=== PATIENT | male | born 1945 | race Caucasian/White ===

== ENCOUNTER 2023-03-16 09:44 | Observation (INO) | payer MEDICARE ==
[2023-03-16] VITALS (19 sets, daily range): BP systolic 95–117; BP diastolic 52–77; PULSE 55–82; RESP 13–20
[~2023-03-16] VITALS: Ht 180.3 cm; Wt 102.1 kg
[~2023-03-16 09:44] MED LIST: LEVO-70 PO
[2023-03-16] MEDS ORDERED: NACL 0.9% IV SCH (10:30)
[2023-03-16] MEDS ORDERED: VANCOMYCIN IV SCH (10:30)
[2023-03-16] MEDS ORDERED: VANCOMYCIN KIT 1 GM/250 ML IV.KIT IV ONE (10:30)
[2023-03-16] MEDS ORDERED: PHARMACY COMMUNICATION MISC SCH (10:30)
[2023-03-16] MEDS: CEFEPIME HCL 2 GM VIAL IVPB SCH ×2 (10:30→20:21)
[2023-03-16 11:16] LABS: BASOPHILS # (AUTO) 0.05 K/uL (0.00-0.20); BASOPHILS % (AUTO) 0.8 % (0.0-5.0); EOSINOPHILS # (AUTO) 0.49 K/uL (0.00-0.70); EOSINOPHILS % (AUTO) 8.2 % (0.0-8.0); HEMATOCRIT 41.7 % (42-54); IMMATURE GRANULOCYTE ABSOLUTE 0.02 K/uL (0-1); LYMPHOCYTES # (AUTO) 1.6 K/uL (1.0-4.8); LYMPHOCYTES % (AUTO) 25.8 % (21.0-51.0); MEAN CORPUSCULAR HEMOGLOBIN 30.3 pg (27.0-33.0); MEAN CORPUSCULAR HGB CONC 33.6 g/dL (32.0-36.0); MEAN CORPUSCULAR VOLUME 90.3 fL (79-99); MONOCYTES # (AUTO) 0.5 K/uL (0.1-1.0); MONOCYTES % (AUTO) 7.8 % (3.0-13.0); NEUTROPHILS # (AUTO) 3.4 K/uL (1.8-7.7); NEUTROPHILS % (AUTO) 57.1 % (40.0-77.0); PLATELET COUNT (AUTO) 154 K/uL (130-400); RED BLOOD CELL COUNT(AUTO) 4.62 MIL/uL (4.50-6.20)
[2023-03-16 11:55] LABS: ALBUMIN 3.5 g/dL (3.5-5.0); BILIRUBIN,TOTAL 0.6 mg/dL (0.2-1.0); CREATININE 1.2 mg/dL (0.5-1.5); POTASSIUM 4.5 mmol/L (3.5-5.1); TOTAL PROTEIN, SERUM 7.2 g/dL (6.0-8.3)
[2023-03-16 13:29] LABS: INR 1.02 (0.85-1.15); PROTHROMBIN TIME 11.8 SEC (9.6-11.6)
[2023-03-16 13:31] LABS: PARTIAL THROMBOPLASTIN TIME 28.7 SEC (26.3-35.5)
[2023-03-16 15:35] LABS: HEMOGLOBIN A1C 5.9 % (4.0-6.0)
[2023-03-16] MEDS: MORPHINE 2 MG SYG IVP PRN ×2 (15:44→22:00)
[2023-03-16] MEDS ORDERED: NAPR-1196 PO (15:49)
[2023-03-16] MEDS ORDERED: LIDOCAINE HCL 1% 20 ML VIAL ONE (16:41)
[2023-03-16] MEDS ORDERED: BUPIVACAINE/PF 0.5% 30ML VIAL ONE (16:42)
[2023-03-16] MEDS ORDERED: MIDAZOLAM HCL 1 MG/ML 2ML VIAL ONE (16:46)
[2023-03-16] MEDS ORDERED: FENTANYL CITRATE PF 50 MCG/1 ML 2ML VIAL ONE ×3 (16:47→17:22)
[2023-03-16] MEDS ORDERED: PROPOFOL 1000 MG/100 ML 100 ML IV ONE (16:55)
[2023-03-16] MEDS ORDERED: CEFAZOLIN SODIUM 2 GM VIAL IVPB ONE (17:39)
[2023-03-16] MEDS ORDERED: PHENYLEPHRINE HCL 10 MG/ML 1ML VIAL IV ONE (18:06)
[2023-03-16] MEDS ORDERED: ONDANSETRON 4MG INJ ONE (18:44)
[2023-03-17] VITALS (7 sets, daily range): BP systolic 96–142; BP diastolic 50–79; PULSE 67–88; RESP 18–20
[2023-03-17] MEDS: MORPHINE 2 MG SYG IVP PRN (04:01)
[2023-03-17 05:41] LABS: BASOPHILS # (AUTO) 0.05 K/uL (0.00-0.20); BASOPHILS % (AUTO) 0.6 % (0.0-5.0); EOSINOPHILS # (AUTO) 0.51 K/uL (0.00-0.70); EOSINOPHILS % (AUTO) 6.6 % (0.0-8.0); HEMATOCRIT 39.3 % (42-54); IMMATURE GRANULOCYTE ABSOLUTE 0.04 K/uL (0-1); LYMPHOCYTES # (AUTO) 1.5 K/uL (1.0-4.8); MEAN CORPUSCULAR HEMOGLOBIN 30.3 pg (27.0-33.0); MEAN CORPUSCULAR HGB CONC 33.3 g/dL (32.0-36.0); MEAN CORPUSCULAR VOLUME 90.8 fL (79-99); MONOCYTES # (AUTO) 0.7 K/uL (0.1-1.0); MONOCYTES % (AUTO) 8.6 % (3.0-13.0); NEUTROPHILS # (AUTO) 4.9 K/uL (1.8-7.7); NEUTROPHILS % (AUTO) 63.7 % (40.0-77.0); PLATELET COUNT (AUTO) 144 K/uL (130-400); RED BLOOD CELL COUNT(AUTO) 4.33 MIL/uL (4.50-6.20); RED CELL DISTRIBUTION WIDTH 12.8 % (11.0-15.5); WHITE BLOOD COUNT (AUTO) 7.7 K/uL (4.8-10.8)
[2023-03-17 05:53] LABS: CREATININE 1.1 mg/dL (0.5-1.5); POTASSIUM 4.2 mmol/L (3.5-5.1)
[2023-03-17] MEDS ORDERED: TETANUS/DIPHTHERIA TOXOID [ADULT] 0.5 ML VIAL IM ONE (11:30)
[2023-03-17] MEDS ORDERED: TRAMADOL HCL 50 MG TABLET PO PRN (11:30)
[2023-03-17] MEDS: CEFEPIME HCL 1 GM VIAL IVPB SCH (12:13)
[2023-03-17] MEDS ORDERED: TETANUS IMMUNE GLOBULIN 250 UNIT SYRINGE IM SCH (12:30)
[2023-03-17] MEDS ORDERED: MORPHINE 2 MG SYG IVP PRN (13:00)
[2023-03-17] MEDS: DOXYCYCLINE 100MG+NS 250ML IV SCH (15:01)
[2023-03-17] MEDS: TRAMADOL HCL 50 MG TABLET PO PRN (19:59)
[2023-03-18] MEDS: CEFEPIME HCL 1 GM VIAL IVPB SCH (00:46)
[2023-03-18] MEDS: DOXYCYCLINE 100MG+NS 250ML IV SCH (02:55)
[2023-03-18 04:45] VITALS: BP 119/70; PULSE 78; RESP 18
[2023-03-18] MEDS: TRAMADOL HCL 50 MG TABLET PO PRN (05:33)
[2023-03-18] MEDS ORDERED: LEVO-70 PO (06:51)
[2023-03-18] MEDS ORDERED: TRAM50TA4 PO (06:51)
[2023-03-18 07:57] VITALS: BP 96/57; PULSE 78; RESP 18
[2023-03-18 10:21] VITALS: O2SAT 95
== END 2023-03-18 10:10 | disposition home or self-care (01) ==
LOC: EDH 09:44 → INTOOBSV 10:02 → DIRECT 10:02 → 3BH 10:43
PROVIDERS: ADMIT Internal Medicine; ATTEND Internal Medicine
DX: T84.59XA Infection and inflammatory reaction due to other internal joint prosthesis, initial encounter (principal); S91.145A Puncture wound with foreign body of left lesser toe(s) without damage to nail, initial encounter; E11.9 Type 2 diabetes mellitus without complications; F03.90 Unspecified dementia, unspecified severity, without behavioral disturbance, psychotic disturbance, mood disturbance, and anxiety; E66.9 Obesity, unspecified; Q33.3 Agenesis of lung; Z87.891 Personal history of nicotine dependence; Z68.31 Body mass index [BMI] 31.0-31.9, adult; Z79.899 Other long term (current) drug therapy; Z23 Encounter for immunization; W22.8XXA Striking against or struck by other objects, initial encounter; Y93.01 Activity, walking, marching and hiking; Y92.89 Other specified places as the place of occurrence of the external cause; Y99.8 Other external cause status
CPT/HCPCS: 20680; 96365; 96375; 83036; 80053; 85025 ×2; 85610; 85730; 87070; 87076; 82948 ×9; 36415 ×2; 71045; 73630; 93005; 96376; 96372; 96366 ×4; 96367; 80048; 90714; 90471; 97161; 97039; 97116; J7030; C1729; J3010 ×3; J2270 ×4; J2250; J2704; J2405; J3490 ×3; J2371; J7050; J0690; J3370; A6445; A6446; A4649; G0378 ×19; J1670; J0692 ×3; G8980-CI; G8983-CI

== ENCOUNTER → 2025-07-19 | Outpatient (CLI) | payer OTHER ==
[~2025-07-19] MED LIST changes: +APIX5TAB PO; +DRON400T7 PO; +EMPA10TA PO; +EPLE25TA24 PO; +FURO20TA4 PO; +METO-408 PO; +NAPR-1196 PO; +SACU1TAB PO; +TRAM100C2 PO; +TRAM50TA4 PO
--- NOTE | 2025-07-19 23:07 | HMCIMG ---
EXAM: MR right Upper Extremity Without IV contrast, Shoulder. 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 Series acquired: 3 - AX T1 - TR: 623.0 - TE: 9.7 - ET: 4.0 - Thk: 3.0 4 - AX STIR - TR: 3996.0 - TE: 45.4 - ET: 16.0 - Thk: 3.0 5 - COR T2 - TR: 4782.0 - TE: 100.2 - ET: 16.0 - Thk: 3.0 6 - COR STIR - TR: 4314.0 - TE: 37.5 - ET: 21.0 - Thk: 3.0 7 - SAG T2 - TR: 4425.0 - TE: 99.9 - ET: 21.0 - Thk: 3.0 8 - SAG PD FS PROPELLER - TR: 3254.7 - TE: 58.7 - ET: 16.0 - Thk: 3.0 CONTRAST: None. COMPARISON: None provided. FINDINGS: TENDONS: SUPRASPINATUS: Mild supraspinatus tendinosis with increased signal on T2-weighted and fat-suppressed sequences at the critical zone, without discrete partial- or full-thickness tear. INFRASPINATUS: Unremarkable. SUBSCAPULARIS: Mild tendinosis with subtle increased signal on fluid-sensitive sequences, without definite tear. TERES MINOR: Unremarkable. BICEPS BRACHII, LONG HEAD: Tendon is normally located within the bicipital groove with minimal adjacent fluid, compatible with mild tenosynovitis. LIGAMENTS: GLENOHUMERAL: Unremarkable. JOINTS: GLENOHUMERAL JOINT: Minimal joint effusion. No displaced labral tear demonstrated. CORACOACROMIAL ARCH: Moderate degenerative osteoarthrosis of the acromioclavicular joint with joint space narrowing, subchondral signal change, and osteophyte formation. Associated capsular/soft tissue hypertrophy and inferiorly directed osteophytes result in narrowing of the subacromial space and mechanical impingement upon the myotendinous junction of the supraspinatus. BONES: No acute fracture or aggressive appearing osseous lesion. Bone marrow signal intensity is otherwise within normal limits. MUSCLES: Normal girth and signal intensity without fatty atrophy or edema of the rotator cuff musculature. MISCELLANEOUS: Minimal fluid within the subacromial/subdeltoid bursa. Small amount of fluid in the glenohumeral joint and along the bicipital groove. IMPRESSION: * Moderate acromioclavicular joint osteoarthrosis with joint effusion and inferior osteophyte/soft tissue hypertrophy causing subacromial impingement at the myotendinous junction of the supraspinatus (impingement-related rotator cuff tendinopathy). * Mild supraspinatus and subscapularis tendinosis without discrete partial- or full-thickness rotator cuff tear. * Minimal glenohumeral joint effusion and mild fluid along the bicipital groove compatible with mild long head biceps tenosynovitis. /Una
== END | disposition home or self-care (01) ==
LOC: RAH 11:07
PROVIDERS: ATTEND Orthopaedic Surgery
DX: M19.011 Primary osteoarthritis, right shoulder (principal); M25.411 Effusion, right shoulder; M67.911 Unspecified disorder of synovium and tendon, right shoulder; M25.711 Osteophyte, right shoulder; M67.813 Other specified disorders of tendon, right shoulder
CPT/HCPCS: 73221

== ENCOUNTER 2025-07-20 08:56 | Day surgery (SDC) | payer OTHER ==
[2025-07-19 11:45] LABS: IMMATURE GRANULOCYTE ABSOLUTE 0.03 K/uL (0-1); NUCLEATED RED BLOOD CELLS 0.0 % (0.0-0.19); PLATELET COUNT (AUTO) 176 K/uL (130-400); RED BLOOD CELL COUNT(AUTO) 4.86 MIL/uL (4.50-6.20); RED CELL DISTRIBUTION WIDTH 13.0 % (11.0-15.5); WHITE BLOOD COUNT (AUTO) 7.4 K/uL (4.8-10.8)
[2025-07-19 11:53] LABS: CREATININE 1.4 mg/dL (0.5-1.3); GLOMERULAR FILTR. RATE CALC 51.0 mL/min (>90); GLUCOSE,RANDOM 114.0 mg/dL (70-105); SODIUM SERUM 136.0 mmol/L (136-145); UREA NITROGEN, BLOOD 14.0 mg/dL (7-18)
[2025-07-19 11:54] LABS: INR 1.03 (0.85-1.15)
[2025-07-19 12:05] VITALS: BP 84/51; PULSE 72; RESP 16; TEMP 97.7
--- NOTE | 2025-07-19 16:57 | EKG ---
[facility] Test Date: 2025-07-19 Test Time: 11:43:22 Pat Name: RIA JACOB Department: [facility] Room: [facility] Gender: M Shaker [place]: [id number] : 1945 Requested By: JALEN HARO Order Number: [id number] Reading MD: Rodney Hui Measurements Intervals Hood Rate: 67 P: 39 WA: 235 QRS: 131 QRSD: 179 T: -14 QT: 464 QTc: 492 Interpretive Statements Sinus rhythm Ventricular premature complex Prolonged WA interval INTRAVENTRICULAR CONDUCTION DELAY Right axis Electronically Signed On 07-20-2025 09:18:47 LAUNCH LEADER by Rodney Hui Please click the below link to view image of tracing.
[2025-07-20] VITALS (8 sets, daily range): BP systolic 89–104; BP diastolic 49–63; PULSE 60–87; RESP 13–18; TEMP 97.1–97.6
[~2025-07-20] VITALS: Ht 180.3 cm; Wt 99.9 kg
[2025-07-20] MEDS ORDERED: LIDOCAINE HCL 1% MDV 50ML VIAL ONE (12:13)
[2025-07-20] MEDS ORDERED: SODIUM BICARB 50MEQ 50ML VIAL 50 ML ONE (12:13)
[2025-07-20] MEDS ORDERED: MIDAZOLAM HCL 1 MG/ML 2ML VIAL ONE ×2 (12:34→12:52)
[2025-07-20] MEDS ORDERED: IOHEXOL-350 50ML VIAL IV ONE ×2 (12:48→13:12)
--- NOTE | 2025-07-20 15:40 | NUR ---
WENDI VALDEZ RN GIVEN REPORT VIA SBAR AT NURSE'S STATION. DRESSING TO LEFT UPPER CHEST 4X4 STERILE TEG[address]M IN PLACE TO LEFT UPPER CHEST. NO ACTIVE BLEEDING OR DRAINAGE NOTED. NO REDNESS OR SWELLING NOTED. PATIENT ABLE TO WIGGLE FINGERS. SLING TO LEFT ARM.
--- NOTE | 2025-07-20 16:05 | NUR ---
SLING TO LEFT ARM. 4X4 STERILE TEGADERM DRESSING IN PLACE TO LEFT UPPER CHEST. NO ACTIVE BLEEDING OR DRAINAGE NOTED. NO REDNESS OR SWELLING NOTED. PATIENT ABLE TO WIGGLE FINGERS. DRESSING SOFT TO TOUCH.
--- NOTE | 2025-07-20 16:35 | NUR ---
SLING TO LEFT ARM. 4X4 STERILE TEGADERM TO LEFT UPPER CHEST. NO ACTIVE BLEEDING OR DRAINAGE NOTED. NO REDNESS OR SWELLING NOTED. DRESSING SOFT TO TOUCH. DRESSING DRY AND INTACT.
--- NOTE | 2025-07-20 17:25 | NUR ---
SLING TO LEFT ARM. NO ACTIVE BLEEDING OR DRAINAGE NOTED. NO REDNESS OR SWELLING NOTED. DRESSING DRY AND INTACT. PATIENT ABLE TO WIGGLE FINGERS. DRESSING SOFT TO TOUCH.
--- NOTE | 2025-07-20 19:06 | HMCIMG ---
STUDY: X-RAY OF THE CHEST, 1 VIEW HISTORY: Status post cardiac resynchronization therapy defibrillator (REHAB DIRECTOR OCCUPATIONAL THERAPIST-D). TECHNIQUE: A single frontal view of the chest is submitted for interpretation. COMPARISON: None provided. FINDINGS: Pulmonary peguero: Pulmonary vascular markings are mildly prominent, compatible with vascular congestion. No focal consolidation, pleural-based mass, or pneumothorax is identified. Cardiac silhouette: Mild cardiomegaly. Mediastinum and pho[place]: Mediastinal contours are within normal limits. Soft atherosclerotic calcification of the aortic arch is present. No discrete mediastinal or hilar mass is seen. Osseous structures: Visualized ribs, clavicles, scapulae, and thoracic spine demonstrate no acute osseous abnormality. Miscellaneous: A multilead cardiac resynchronization therapy defibrillator (REHAB DIRECTOR OCCUPATIONAL THERAPIST-D) is present in the left chest wall with intact leads extending to the right atrium, right ventricle, and coronary sinus region, in expected position. No visible device-related complication. Costophrenic angles are clear. No free subdiaphragmatic air. IMPRESSION: * Mild cardiomegaly with pulmonary vascular congestion, compatible with mild volume overload or congestive heart failure in the appropriate clinical setting; correlate with symptoms, examination, and cardiac biomarkers. * Multilead REHAB DIRECTOR OCCUPATIONAL THERAPIST-D device in the left chest wall with intact-appearing leads in expected positions and no radiographic evidence of device-related complication. * Aortic arch atherosclerotic calcification, reflecting underlying chronic vascular disease. /Crowder
== END 2025-07-20 17:31 | disposition home or self-care (01) ==
LOC: DAH 08:56
PROVIDERS: ATTEND Internal Medicine Cardiovascular Disease
DX: I42.8 Other cardiomyopathies (principal); I45.10 Unspecified right bundle-branch block; I49.3 Ventricular premature depolarization; I42.0 Dilated cardiomyopathy; I25.10 Atherosclerotic heart disease of native coronary artery without angina pectoris; E11.9 Type 2 diabetes mellitus without complications; I50.22 Chronic systolic (congestive) heart failure; I48.0 Paroxysmal atrial fibrillation; Z82.49 Family history of ischemic heart disease and other diseases of the circulatory system; Z88.5 Allergy status to narcotic agent; Z79.899 Other long term (current) drug therapy; Z98.890 Other specified postprocedural states
CPT/HCPCS: 80048; 85025; 85610; 85730; 36415; 93005; 99156; 99157 ×6; 33225; 33249; 82948 ×2; 71045; A4223 ×3; C1777; C1898; C1900; C1769; C1882; J1200; J3010 ×2; J0690; J0665; J3490 ×2; J2250 ×2; Q9967 ×2; A4215; A4222; A4221; A4663; A4216; A4606; C-1882